=== PATIENT | male | born 1990 | race Caucasian/White ===

== ENCOUNTER 2019-10-25 20:09 | Inpatient (IN) | payer OTHER ==
--- NOTE | 2019-10-25 20:10 | ED ---
Overdose HPI - General Stated Complaint: Overdose Time Seen by Provider: 10/25/19 20:10 Source: RN notes reviewed, old records reviewed Mode of arrival: EMS Limitations: altered mental status, physical limitation - History of Present Illness Initial Comments: This is a 29 male in severe distress unable to provide history because of overdose, altered mental state, history obtained form EMS, heroun and meth abuse and found down of unknown downtime. Complaint: accidental overdose -: unknown Intent: unwilling to say How Overdose Was Discovered: other (found unresponsive) Context: Accidental Overdose: wanted to get high Treatments Prior to Arrival: none - Related Data Home Medications Medication Instructions Recorded Confirmed No Known Home Medications 10/25/19 10/25/19 Allergies Allergy/AdvReac Type Severity Reaction Status Date / Time Penicillins Allergy Unknown Verified 10/25/19 21:43 Review of Systems ROS Statement: Those systems with pertinent positive or pertinent negative responses have been documented in the HPI. ROS Other: All systems not noted in ROS Statement are negative. General Exam General appearance: alert, anxious, in distress Head exam: Present: atraumatic, normocephalic, normal inspection Eye exam: Present: normal appearance, PERRL, EOMI. Absent: scleral icterus, conjunctival injection, periorbital swelling ENT exam: Present: normal exam, mucous membranes moist Neck exam: Present: normal inspection. Absent: tenderness, meningismus, lymphadenopathy Respiratory exam: Present: normal lung sounds bilaterally, rhonchi, accessory muscle use, decreased breath sounds, prolonged expiratory. Absent: respiratory distress, wheezes, rales, stridor Cardiovascular Exam: Present: tachycardia, irregular rhythm, normal heart sounds. Absent: systolic murmur, diastolic murmur, rubs, gallop, clicks GI/Abdominal exam: Present: soft, normal bowel sounds. Absent: distended, tenderness, guarding, rebound, rigid Extremities exam: Present: normal inspection, full ROM, normal capillary refill. Absent: tenderness, pedal edema, joint swelling, calf tenderness Back exam: Present: normal inspection Neurological exam: Present: alert, oriented X3, CN II-XII intact Psychiatric exam: Present: normal affect, normal mood Skin exam: Present: warm, dry, intact, normal color. Absent: rash Course Vital Signs 10/25/19 10/25/19 10/25/19 20:10 20:22 20:28 Temperature 94.4 F L Pulse Rate 170 H 181 H 181 H Pulse Rate [ Bilateral] Respiratory 25 H 25 H Rate Blood Pressure 83/64 68/46 93/60 O2 Sat by Pulse 89 L 92 L Oximetry 10/25/19 10/25/19 10/25/19 20:32 20:37 20:39 Temperature Pulse Rate 161 H 122 H 129 H Pulse Rate [ Bilateral] Respiratory 20 Rate Blood Pressure 101/50 77/51 O2 Sat by Pulse 91 L Oximetry 10/25/19 10/25/19 10/25/19 20:40 20:43 20:48 Temperature Pulse Rate 137 H 133 H 152 H Pulse Rate [ Bilateral] Respiratory 16 15 Rate Blood Pressure 75/51 81/52 81/54 O2 Sat by Pulse 91 L 95 Oximetry 10/25/19 10/25/19 10/25/19 20:52 20:56 20:58 Temperature 97.6 F Pulse Rate 146 H 158 H Pulse Rate [ Bilateral] Respiratory 18 Rate Blood Pressure 91/53 81/44 O2 Sat by Pulse 94 L Oximetry 10/25/19 10/25/19 10/25/19 21:02 21:11 21:17 Temperature Pulse Rate 110 H 123 H Pulse Rate [ Bilateral] Respiratory Rate Blood Pressure 69/48 77/49 82/49 O2 Sat by Pulse Oximetry 10/25/19 10/25/19 10/25/19 21:27 21:30 21:40 Temperature Pulse Rate 108 H 116 H Pulse Rate [ 110 H Bilateral] Respiratory 18 Rate Blood Pressure 84/54 100/58 O2 Sat by Pulse 94 L 95 Oximetry 10/25/19 10/25/19 10/25/19 22:00 22:21 22:38 Temperature Pulse Rate 118 H 117 H 112 H Pulse Rate [ Bilateral] Respiratory 28 H 26 H 26 H Rate Blood Pressure 91/67 102/63 100/59 O2 Sat by Pulse 93 L 96 98 Oximetry 10/25/19 10/25/19 10/25/19 23:03 23:09 23:21 Temperature Pulse Rate 101 H 96 Pulse Rate [ Bilateral] Respiratory 24 24 Rate Blood Pressure 93/62 110/68 O2 Sat by Pulse 97 98 97 Oximetry - Reevaluation(s) Reevaluation #1: medical record is reviewed patient symptoms improved but still marginal informed patient of results and family, questions answered patient still w marginal hemodynamics although improving Medical Decision Making - Medical Decision Making 89 male with accidental overdose not cardiopulmonary edema and also wanted HO fibrillation with RVR now with rate control. Patient will be admitted for telemetry cardiology, hemodynamic monitoring - Lab Data Result diagrams: 10/26/19 06:34 10/26/19 06:34 Lab Results 10/25/19 10/25/19 10/25/19 Range/Units 20:34 20:34 20:34 WBC 5.0 (3.8-10.6) k/uL RBC 4.76 (4.30-5.90) m/uL Hgb 13.8 (13.0-17.5) gm/dL Hct 43.4 (39.0-53.0) % MCV 91.1 (80.0-100.0) fL MCH 28.9 (25.0-35.0) pg MCHC 31.8 (31.0-37.0) g/dL RDW 13.9 (11.5-15.5) % Plt Count 258 (150-450) k/uL Neutrophils % 55 % Lymphocytes % 40 % Monocytes % 2 % Eosinophils % 1 % Basophils % 0 % Neutrophils # 2.8 (1.3-7.7) k/uL Lymphocytes # 2.0 (1.0-4.8) k/uL Monocytes # 0.1 (0-1.0) k/uL Eosinophils # 0.0 (0-0.7) k/uL Basophils # 0.0 (0-0.2) k/uL PT 13.9 H (9.0-12.0) sec INR 1.4 H (<1.2) APTT 25.7 (22.0-30.0) sec Sodium 139 (137-145) mmol/L Potassium 2.7 L* (3.5-5.1) mmol/L Chloride 112 H (98-107) mmol/L Carbon Dioxide 19 L (22-30) mmol/L Anion Gap 8 mmol/L BUN 11 (9-20) mg/dL Creatinine 0.85 (0.66-1.25) mg/dL Est GFR (CKD-EPI)AfAm >90 (>60 ml/min/1.73 sqM) Est GFR (CKD-EPI)NonAf >90 (>60 ml/min/1.73 sqM) Glucose 224 H (74-99) mg/dL Calcium 6.3 L* (8.4-10.2) mg/dL Phosphorus 5.5 H (2.5-4.5) mg/dL Magnesium 1.7 (1.6-2.3) mg/dL Total Bilirubin 0.8 (0.2-1.3) mg/dL AST 21 (17-59) U/L ALT 18 (4-49) U/L Alkaline Phosphatase 35 L (38-126) U/L Creatine Kinase 68 (55-170) U/L CK-MB (CK-2) (0.0-2.4) ng/mL Troponin I (0.000-0.034) ng/mL NT-Pro-B Natriuret Pep pg/mL Total Protein 4.6 L (6.3-8.2) g/dL Albumin 2.5 L (3.5-5.0) g/dL TSH 2.090 (0.465-4.680) mIU/L 10/25/19 10/25/19 Range/Units 20:34 20:34 WBC (3.8-10.6) k/uL RBC (4.30-5.90) m/uL Hgb (13.0-17.5) gm/dL Hct (39.0-53.0) % MCV (80.0-100.0) fL MCH (25.0-35.0) pg MCHC (31.0-37.0) g/dL RDW (11.5-15.5) % Plt Count (150-450) k/uL Neutrophils % % Lymphocytes % % Monocytes % % Eosinophils % % Basophils % % Neutrophils # (1.3-7.7) k/uL Lymphocytes # (1.0-4.8) k/uL Monocytes # (0-1.0) k/uL Eosinophils # (0-0.7) k/uL Basophils # (0-0.2) k/uL PT (9.0-12.0) sec INR (<1.2) APTT (22.0-30.0) sec Sodium (137-145) mmol/L Potassium (3.5-5.1) mmol/L Chloride (98-107) mmol/L Carbon Dioxide (22-30) mmol/L Anion Gap mmol/L BUN (9-20) mg/dL Creatinine (0.66-1.25) mg/dL Est GFR (CKD-EPI)AfAm (>60 ml/min/1.73 sqM) Est GFR (CKD-EPI)NonAf (>60 ml/min/1.73 sqM) Glucose (74-99) mg/dL Calcium (8.4-10.2) mg/dL Phosphorus (2.5-4.5) mg/dL Magnesium (1.6-2.3) mg/dL Total Bilirubin (0.2-1.3) mg/dL AST (17-59) U/L ALT (4-49) U/L Alkaline Phosphatase (38-126) U/L Creatine Kinase (55-170) U/L CK-MB (CK-2) 0.4 (0.0-2.4) ng/mL Troponin I <0.012 (0.000-0.034) ng/mL NT-Pro-B Natriuret Pep 105 pg/mL Total Protein (6.3-8.2) g/dL Albumin (3.5-5.0) g/dL TSH (0.465-4.680) mIU/L - EKG Data -: EKG Interpreted by Me (EKG is A. fib 171 QRS 74 QTc 458) When compared to previous EKG there are: changes noted (Repeat EKG shows sinus rhythm of 110 by mouth 128 QRS 90 QTC 492) - Radiology Data Radiology results: report reviewed (Chest x-ray shows noncardiogenic pulmonary edema), image reviewed Critical Care Time Critical Care Time: Yes Total Critical Care Time: 31 Disposition Clinical Impression: Accidental drug overdose, Poisoning by opiates and related narcotics, other, Atrial fibrillation with RVR, Weakness, Severe protein-calorie malnutrition, Hypocalcemia, Hypokalemia Disposition: ADMITTED IP TO THIS HOSP Condition: Serious Is patient prescribed a controlled substance at d/c from ED?: No
[2019-10-25] MEDS ORDERED: SODIUM CHLORIDE 0.9% 500 ML 500 ML IV STA (20:18)
[2019-10-25] MEDS ORDERED: SODIUM CHLORIDE 0.9% 1,000 ML IV STA ×2 (20:18)
[2019-10-25] MEDS ORDERED: DILTIAZEM DRIP BOLUS FROM BAG 1 MG SOLN IV ONE (20:20)
[2019-10-25] MEDS ORDERED: ONDANSETRON 4 MG/2 ML VIAL IVP STA (20:20)
[2019-10-25] MEDS ORDERED: IPRATROPIUM-ALBUTEROL 3 ML NEB INHALATION STA (20:24)
[2019-10-25] MEDS: LORazepam 2 MG/ML INJ IV STA ×2 (20:26→21:03)
[2019-10-25 20:44] LABS: Basophils % (A) 0 %; Eosinophils % (A) 1 %; HCT 43.4 % (39.0-53.0); HGB 13.8 gm/dL (13.0-17.5); Lymphocytes % (A) 40 %; MCH 28.9 pg (25.0-35.0); MCHC 31.8 g/dL (31.0-37.0); MCV 91.1 fL (80.0-100.0); Mean Platelet Volume 7.8; Monocytes # (A) 0.1 k/uL (0-1.0); Monocytes % (A) 2 %; Neutrophils # (A) 2.8 k/uL (1.3-7.7); Neutrophils % (A) 55 %; Platelet Count 258 k/uL (150-450); RBC 4.76 m/uL (4.30-5.90); RDW 13.9 % (11.5-15.5)
[2019-10-25 20:54] LABS: ALT 18 U/L (4-49); AST 21 U/L (17-59); African American GFR (CKD) >90 (>60 ml/min/1.73 sqM); Albumin 2.5 g/dL (3.5-5.0); Alkaline Phosphatase 35 U/L (38-126); Anion Gap 8 mmol/L; Blood Urea Nitrogen 11 mg/dL (9-20); Carbon Dioxide 19 mmol/L (22-30); Chloride 112 mmol/L (98-107); Creatine Kinase 68 U/L (55-170); Glucose 224 mg/dL (74-99); Magnesium 1.7 mg/dL (1.6-2.3); Non-African American GFR(CKD) >90 (>60 ml/min/1.73 sqM); Phosphorus 5.5 mg/dL (2.5-4.5); Sodium 139 mmol/L (137-145); Total Bilirubin 0.8 mg/dL (0.2-1.3); Total Protein 4.6 g/dL (6.3-8.2)
[2019-10-25] MEDS ORDERED: DILTIAZEM 125 MG in SODIUM CHLORIDE 0.9% 100 ML IV SCH (21:00)
[2019-10-25 21:05] LABS: Calcium 6.3 mg/dL (8.4-10.2); Potassium 2.7 mmol/L (3.5-5.1)
--- NOTE | 2019-10-25 21:05 | XR ---
EXAMINATION TYPE: XR chest 1V portable DATE OF EXAM: 10/25/2019 COMPARISON: NONE HISTORY: Short of breath TECHNIQUE: Single view FINDINGS: There is pulmonary interstitial edema. There is some coalescent density around the right pu lmonary hilum. Heart size is normal. There are chest leads. IMPRESSION: There is some pulmonary edema. Normal heart size. No pneumothorax. Right lower lobe pneum onia is probably present.
[2019-10-25 21:06] LABS: INR 1.4 (<1.2); Partial Thromboplastin Time 25.7 sec (22.0-30.0); Prothrombin Time 13.9 sec (9.0-12.0)
[2019-10-25 21:11] LABS: Creatine Kinase MB 0.4 ng/mL (0.0-2.4); Troponin I <0.012 ng/mL (0.000-0.034)
[2019-10-25] MEDS ORDERED: SODIUM CHLORIDE 0.9% 1,500 ML IV ONE (21:13)
[2019-10-25] MEDS ORDERED: POTASSIUM CHLORIDE ER 20 MEQ TAB.ER PO STA (21:13)
[2019-10-25] MEDS ORDERED: IPRATROPIUM-ALBUTEROL 3 ML NEB INHALATION PRN (21:14)
[2019-10-25] MEDS ORDERED: NITROGLYCERIN SL TABS 0.4 MG TAB SUBLINGUAL PRN (21:14)
[2019-10-25] MEDS ORDERED: methylPREDNISolone SOD SUCCI 125 MG/2 ML VIAL IV STA (21:14)
[2019-10-25] MEDS ORDERED: NALOXONE 0.4 MG/ML 1 ML VIAL IV PRN (21:14)
[2019-10-25] MEDS ORDERED: LORazepam 2 MG/ML INJ IV PRN (21:14)
[2019-10-25] MEDS ORDERED: LORazepam 2 MG/ML INJ IV STA (21:20)
[2019-10-25] MEDS ORDERED: MORPHINE SULFATE 4 MG/ML SYRINGE IVP STA ×2 (22:08→22:12)
[2019-10-25] MEDS: POTASSIUM CHLORIDE 20 MEQ in WATER FOR INJECTION 1 100ML.BAG IVPB SCH (22:31)
[2019-10-26] MEDS: POTASSIUM CHLORIDE 20 MEQ in WATER FOR INJECTION 1 100ML.BAG IVPB SCH ×3 (00:13→04:43)
[2019-10-26 02:27] LABS: Amphetamine Screen,Urine Detected (NotDetected); Barbiturate Screen,Urine Not Detected (NotDetected); Benzodiazepines Screen,Urine Detected (NotDetected); Cocaine Screen,Urine Not Detected (NotDetected); Methadone Screen, Urine Not Detected (NotDetected); Opiate Screen,Urine Detected (NotDetected); Oxycodone Screen, Urine Not Detected (NotDetected); Phencyclidine Screen,Urine Not Detected (NotDetected); Tricyclic Antidepressant,Urine Not Detected (NotDetected); Urn Cannabinoid Scrn Detected (NotDetected)
[2019-10-26 03:57] VITALS: RESP 20
[2019-10-26 06:59] LABS: HCT 44.3 % (39.0-53.0); HGB 14.2 gm/dL (13.0-17.5); MCH 28.6 pg (25.0-35.0); MCHC 32.1 g/dL (31.0-37.0); MCV 89.3 fL (80.0-100.0); Mean Platelet Volume 7.4; Platelet Count 247 k/uL (150-450); RBC 4.96 m/uL (4.30-5.90); RDW 13.9 % (11.5-15.5); WBC 4.2 k/uL (3.8-10.6)
[2019-10-26 07:06] LABS: ALT 27 U/L (4-49); AST 31 U/L (17-59); African American GFR (CKD) >90 (>60 ml/min/1.73 sqM); Albumin 3.2 g/dL (3.5-5.0); Alkaline Phosphatase 34 U/L (38-126); Anion Gap 4 mmol/L; Blood Urea Nitrogen 13 mg/dL (9-20); Calcium 8.3 mg/dL (8.4-10.2); Carbon Dioxide 23 mmol/L (22-30); Chloride 111 mmol/L (98-107); Cholesterol 128 mg/dL (<200); Glucose 147 mg/dL (74-99); HDL Cholesterol 45 mg/dL (40-60); LDL Cholesterol,Calculated 77 mg/dL (0-99); Non-African American GFR(CKD) >90 (>60 ml/min/1.73 sqM); Potassium 5.4 mmol/L (3.5-5.1); Sodium 138 mmol/L (137-145); Total Bilirubin 1.4 mg/dL (0.2-1.3); Total Protein 5.8 g/dL (6.3-8.2); Triglycerides 30 mg/dL (<150)
[2019-10-26] MEDS ORDERED: PANTOPRAZOLE 40 MG/10 ML VIAL IV SCH (09:00)
[2019-10-26] MEDS ORDERED: ASPIRIN 325 MG TAB PO SCH (09:00)
[2019-10-26 10:05] LABS: Band Neutrophils % 33 %; Lymphocytes # (M) 0.25 k/uL (1.0-4.8); Monocytes # (M) 0.42 k/uL (0-1.0); Neutrophils % (M) 52 %; Nucleated Red Blood Cells 0 /100 WBC (0-0); Total Cells Counted 200
[2019-10-26 10:06] LABS: Anisocytosis (M) Present
[2019-10-26] MEDS ORDERED: LACTATED RINGERS 1,000 ML IV SCH (11:45)
[2019-10-26] MEDS ORDERED: NICOTINE 21MG/24HR PATCH TRANSDERM SCH (11:45)
--- NOTE | 2019-10-26 13:09 | P.CRDCN ---
History of Present Illness Consult date: 10/26/19 Chief complaint: Change in mental status History of present illness: This is a 29-year-old gentleman who was admitted to the hospital with a change in mental status. The patient somewhat is a poor historian. The patient was with friends around the water when he developed change in mental status. He was brought to the emergency department and he was found to be positive for multiple substances. He admitted that he was using heroine. We consulted to see the patient because of cardiac arrhythmia. When he presented to the hospital he was in atrial fibrillation with RVR and that was new to have a subsequently was converted to normal sinus mechanism. In terms of symptoms he is completely asymptomatic and denies any symptoms of chest pain or chest discomfort, shortness of breath, dizziness, heart racing. The urine drug screen came in positive for opiates as well as marijuana. The patient stated that he was using heroine. He is also a smoker. He has been maintaining normal sinus mechanism. 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 He has been maintaining normal sinus mechanism. The blood pressure has been on the low side. I am going to start the patient on small dose of metoprolol at 12.5 mg by mouth twice a day. I will obtain an echocardiogram was Doppler. Continue following up with him. Past Medical History Past Medical History: No Reported History History of Any Multi-Drug Resistant Organisms: Unobtainable Past Surgical History: No Surgical Hx Reported Past Anesthesia/Blood Transfusion Reactions: No Reported Reaction Past Psychological History: No Psychological Hx Reported Smoking Status: Current every day smoker Past Alcohol Use History: None Reported Past Drug Use History: Heroin, Methamphetamine, Opiates Medications and Allergies Home Medications Medication Instructions Recorded Confirmed Type No Known Home Medications 10/25/19 10/25/19 History Allergies Allergy/AdvReac Type Severity Reaction Status Date / Time Penicillins Allergy Unknown Verified 10/25/19 21:43 Physical Exam Vitals: Vital Signs Temp Pulse Pulse Resp BP BP Pulse Ox 10/26/19 03:54 98.0 F 100 20 88/51 97 10/26/19 02:08 97 10/26/19 01:03 98.4 F 111 H 28 H 115/55 96 10/26/19 00:52 98.4 F 111 H 28 H 115/55 96 10/25/19 23:21 96 24 110/68 97 10/25/19 23:09 101 H 24 93/62 98 10/25/19 23:03 97 10/25/19 22:38 112 H 26 H 100/59 98 10/25/19 22:21 117 H 26 H 102/63 96 10/25/19 22:00 118 H 28 H 91/67 93 L 10/25/19 21:40 116 H 100/58 95 10/25/19 21:30 110 H 10/25/19 21:27 108 H 18 84/54 94 L 10/25/19 21:17 123 H 82/49 10/25/19 21:11 77/49 10/25/19 21:02 110 H 69/48 10/25/19 20:58 158 H 81/44 10/25/19 20:56 97.6 F 10/25/19 20:52 146 H 18 91/53 94 L 10/25/19 20:48 152 H 15 81/54 95 10/25/19 20:43 133 H 81/52 10/25/19 20:40 137 H 16 75/51 91 L 10/25/19 20:39 129 H 10/25/19 20:37 122 H 20 77/51 91 L 10/25/19 20:32 161 H 101/50 10/25/19 20:28 94.4 F L 181 H 25 H 93/60 92 L 10/25/19 20:22 181 H 68/46 10/25/19 20:10 170 H 25 H 83/64 89 L Intake and Output 10/25/19 10/26/19 10/26/19 22:59 06:59 14:59 Intake Total 100 910 Output Total 400 Balance 100 510 Intake: Intake, IV Titration 100 790 Amount Potassium Chloride 20 meq 100 200 In Water For Injection 1 100ml.bag @ 50 mls/hr IVPB Q2HR AGUSTINA Rx#: [id number] Sodium Chloride 0.9% 1, 590 000 ml @ 130 mls/hr IV . Q7H42M STA Rx#:[id number] Oral 120 Output: Urine 400 Other: Weight 78.471 kg 73.5 kg - Constitutional General appearance: no acute distress - Respiratory Respiratory: bilateral: CTA - Cardiovascular Rhythm: regular Heart sounds: normal: S1, S2 Results 10/26/19 06:34 10/26/19 06:34 Cardiac Enzymes 10/25/19 10/25/19 10/25/19 Range/Units 20:34 20:34 23:11 AST 21 (17-59) U/L CK-MB (CK-2) 0.4 (0.0-2.4) ng/mL Troponin I <0.012 <0.012 (0.000-0.034) ng/mL 10/26/19 10/26/19 Range/Units 02:25 06:34 AST 31 (17-59) U/L CK-MB (CK-2) (0.0-2.4) ng/mL Troponin I 0.012 (0.000-0.034) ng/mL Coagulation 10/25/19 Range/Units 20:34 PT 13.9 H (9.0-12.0) sec APTT 25.7 (22.0-30.0) sec Lipids 10/26/19 Range/Units 06:34 Triglycerides 30 (<150) mg/dL Cholesterol 128 (<200) mg/dL HDL Cholesterol 45 (40-60) mg/dL CBC 10/25/19 10/26/19 Range/Units 20:34 06:34 WBC 5.0 4.2 (3.8-10.6) k/uL RBC 4.76 4.96 (4.30-5.90) m/uL Hgb 13.8 14.2 (13.0-17.5) gm/dL Hct 43.4 44.3 (39.0-53.0) % Plt Count 258 247 (150-450) k/uL Comprehensive Metabolic Panel 10/25/19 10/26/19 Range/Units 20:34 06:34 Sodium 139 138 (137-145) mmol/L Potassium 2.7 L* 5.4 H (3.5-5.1) mmol/L Chloride 112 H 111 H (98-107) mmol/L Carbon Dioxide 19 L 23 (22-30) mmol/L BUN 11 13 (9-20) mg/dL Creatinine 0.85 0.80 (0.66-1.25) mg/dL Glucose 224 H 147 H (74-99) mg/dL Calcium 6.3 L* 8.3 L (8.4-10.2) mg/dL AST 21 31 (17-59) U/L ALT 18 27 (4-49) U/L Alkaline Phosphatase 35 L 34 L (38-126) U/L Total Protein 4.6 L 5.8 L (6.3-8.2) g/dL Albumin 2.5 L 3.2 L (3.5-5.0) g/dL Current Medications Generic Name Dose Route Start Last Admin Trade Name Freq PRN Reason Stop Dose Admin Albuterol/Ipratropium 3 ml 10/25/19 21:14 Duoneb 0.5 Mg-3 Mg/3 Ml Soln INHALATION RT-Q4H PRN Shortness Of Breath Or Wheezing Aspirin 81 mg 10/27/19 09:00 Aspirin PO DAILY AGUSTINA Metoprolol Tartrate 12.5 mg 10/26/19 21:00 Lopressor PO BID AGUSTINA Naloxone HCl 0.2 mg 10/25/19 21:14 Narcan IV Q2M PRN Opioid Reversal Nicotine 1 patch 10/26/19 11:45 10/26/19 11:58 Habitrol 21mg/24hr Patch TRANSDERM 1 patch DAILY AGUSTINA Administration Nitroglycerin 0.4 mg 10/25/19 21:14 Nitrostat SUBLINGUAL Q5M PRN Chest Pain Pantoprazole Sodium 40 mg 10/26/19 09:00 10/26/19 09:50 Protonix IV 40 mg DAILY AGUSTINA Administration Intake and Output 10/25/19 10/26/19 10/26/19 22:59 06:59 14:59 Intake Total 100 910 Output Total 400 Balance 100 510 Intake: Intake, IV Titration 100 790 Amount Potassium Chloride 20 meq 100 200 In Water For Injection 1 100ml.bag @ 50 mls/hr IVPB Q2HR AGUSTINA Rx#: [id number] Sodium Chloride 0.9% 1, 590 000 ml @ 130 mls/hr IV . Q7H42M STA Rx#:[id number] Oral 120 Output: Urine 400 Other: Weight 78.471 kg 73.5 kg 10/26/19 06:34 10/26/19 06:34 Assessment and Plan Assessment: Assessment #1 drug abuse #2 paroxysmal atrial fibrillation Plan #1 continue with current medical regimen #2 start the patient on a small dose of metoprolol #3 obtain an echocardiogram was Doppler #4 follow-up with the patient
--- NOTE | 2019-10-26 15:02 | P.HPIM ---
History of Present Illness 29-year-old pleasant male came in for heroin overdose and the patient is still not in any and patient is also found to be in atrial fibrillation with rapid ventricular rate patient is presently sinus rhythm and the rate controlled pa tient approximately A. fib. Echocardiac exam is being obtained patient is alert oriented times it this time and patient is willing to quit drugs. Patient denied using any IV drugs. Patient the urine drug screen is positive for amphetamines benzodiazepines hyaline and opiates. Patient was started on low- dose metoprolol echocardiogram is being obtained andshe was started on aspirin. Patient denied any fever chills patient had nausea vomiting dysuria diarrhea. Patient was never tested for hepatitis C Review of Systems REVIEW OF SYSTEMS: CONSTITUTIONAL: No fever, no malaise, no fatigue. HEENT: No recent visual problems or hearing problems. Denied any sore throat. CARDIOVASCULAR: No chest pain, orthopnea, PND, no palpitations, no syncope. PULMONARY: No shortness of breath, no cough, no hemoptysis. GASTROINTESTINAL: No diarrhea, no nausea, no vomiting, no abdominal pain. NEUROLOGICAL: No headaches, no weakness, no numbness. HEMATOLOGICAL: Denies any bleeding or petechiae. GENITOURINARY: Denies any burning micturition, frequency, or urgency. MUSCULOSKELETAL/RHEUMATOLOGICAL: Denies any joint pain, swelling, or any muscle pain. ENDOCRINE: Denies any polyuria or polydipsia. The rest of the 14-point review of systems is negative. Past Medical History Past Medical History: No Reported History History of Any Multi-Drug Resistant Organisms: Unobtainable Past Surgical History: No Surgical Hx Reported Past Anesthesia/Blood Transfusion Reactions: No Reported Reaction Past Psychological History: No Psychological Hx Reported Smoking Status: Current every day smoker Past Alcohol Use History: None Reported Past Drug Use History: Heroin, Methamphetamine, Opiates Medications and Allergies Home Medications Medication Instructions Recorded Confirmed Type No Known Home Medications 10/25/19 10/25/19 History Allergies Allergy/AdvReac Type Severity Reaction Status Date / Time Penicillins Allergy Unknown Verified 10/25/19 21:43 Physical Exam Vitals: Vital Signs Temp Pulse Pulse Resp BP BP Pulse Ox 10/26/19 03:54 98.0 F 100 20 88/51 97 10/26/19 02:08 97 10/26/19 01:03 98.4 F 111 H 28 H 115/55 96 10/26/19 00:52 98.4 F 111 H 28 H 115/55 96 10/25/19 23:21 96 24 110/68 97 10/25/19 23:09 101 H 24 93/62 98 10/25/19 23:03 97 10/25/19 22:38 112 H 26 H 100/59 98 10/25/19 22:21 117 H 26 H 102/63 96 10/25/19 22:00 118 H 28 H 91/67 93 L 10/25/19 21:40 116 H 100/58 95 10/25/19 21:30 110 H 10/25/19 21:27 108 H 18 84/54 94 L 10/25/19 21:17 123 H 82/49 10/25/19 21:11 77/49 10/25/19 21:02 110 H 69/48 10/25/19 20:58 158 H 81/44 10/25/19 20:56 97.6 F 10/25/19 20:52 146 H 18 91/53 94 L 10/25/19 20:48 152 H 15 81/54 95 10/25/19 20:43 133 H 81/52 10/25/19 20:40 137 H 16 75/51 91 L 10/25/19 20:39 129 H 10/25/19 20:37 122 H 20 77/51 91 L 10/25/19 20:32 161 H 101/50 10/25/19 20:28 94.4 F L 181 H 25 H 93/60 92 L 10/25/19 20:22 181 H 68/46 10/25/19 20:10 170 H 25 H 83/64 89 L Intake and Output 10/25/19 10/26/19 10/26/19 22:59 06:59 14:59 Intake Total 100 910 236 Output Total 400 Balance 100 510 236 Intake: Intake, IV Titration 100 790 Amount Potassium Chloride 20 meq 100 200 In Water For Injection 1 100ml.bag @ 50 mls/hr IVPB Q2HR AGUSTINA Rx#: [id number] Sodium Chloride 0.9% 1, 590 000 ml @ 130 mls/hr IV . Q7H42M STA Rx#:[id number] Oral 120 236 Output: Urine 400 Other: # Voids 2 Weight 78.471 kg 73.5 kg PHYSICAL EXAMINATION: GENERAL: The patient is alert and oriented x3, not in any acute distress. Well developed, well nourished. HEENT: Pupils are round and equally reacting to light. EOMI. No scleral icterus. No conjunctival pallor. Normocephalic, atraumatic. No pharyngeal erythema. No thyromegaly. CARDIOVASCULAR: S1 and S2 present. No murmurs, rubs, or gallops. PULMONARY: Chest is clear to auscultation, no wheezing or crackles. ABDOMEN: Soft, nontender, nondistended, normoactive bowel sounds. No palpable organomegaly. MUSCULOSKELETAL: No joint swelling or deformity. EXTREMITIES: No cyanosis, clubbing, or pedal edema. NEUROLOGICAL: Gross neurological examination did not reveal any focal deficits. SKIN: No rashes. Results CBC & Chem 7: 10/26/19 06:34 10/26/19 06:34 Labs: Abnormal Lab Results - Last 24 Hours (Table) 10/25/19 10/25/19 10/26/19 Range/Units 20:34 20:34 02:00 Lymphocytes # (Manual) (1.0-4.8) k/uL PT 13.9 H (9.0-12.0) sec INR 1.4 H (<1.2) Potassium 2.7 L* (3.5-5.1) mmol/L Chloride 112 H (98-107) mmol/L Carbon Dioxide 19 L (22-30) mmol/L Glucose 224 H (74-99) mg/dL Calcium 6.3 L* (8.4-10.2) mg/dL Phosphorus 5.5 H (2.5-4.5) mg/dL Total Bilirubin (0.2-1.3) mg/dL Alkaline Phosphatase 35 L (38-126) U/L Total Protein 4.6 L (6.3-8.2) g/dL Albumin 2.5 L (3.5-5.0) g/dL Urine Opiates Screen Detected H (NotDetected) Ur Amphetamines Screen Detected H (NotDetected) U Methamphetamines Scrn Detected H (NotDetected) U Benzodiazepines Scrn Detected H (NotDetected) U Marijuana (THC) Screen Detected H (NotDetected) 10/26/19 10/26/19 Range/Units 06:34 06:34 Lymphocytes # (Manual) 0.25 L (1.0-4.8) k/uL PT (9.0-12.0) sec INR (<1.2) Potassium 5.4 H (3.5-5.1) mmol/L Chloride 111 H (98-107) mmol/L Carbon Dioxide (22-30) mmol/L Glucose 147 H (74-99) mg/dL Calcium 8.3 L (8.4-10.2) mg/dL Phosphorus (2.5-4.5) mg/dL Total Bilirubin 1.4 H (0.2-1.3) mg/dL Alkaline Phosphatase 34 L (38-126) U/L Total Protein 5.8 L (6.3-8.2) g/dL Albumin 3.2 L (3.5-5.0) g/dL Urine Opiates Screen (NotDetected) Ur Amphetamines Screen (NotDetected) U Methamphetamines Scrn (NotDetected) U Benzodiazepines Scrn (NotDetected) U Marijuana (THC) Screen (NotDetected) Thrombosis Risk Factor Assmnt - Choose All That Apply Any of the Below Risk Factors Present?: No Other Risk Factors: No Other congenital or acquired thrombophilia - If yes, enter type in comment: No Thrombosis Risk Factor Assessment Level: Very Low Risk Assessment and Plan Plan: - drug overdose: Patient is presently alert and oriented will be tired and fatiguedpatient's IV fluids were discontinued because of mild hyperchloremia and also possibility of pulmonary edema. -new onset atrial fibrillation. Patient has proximal A. fib on admission patient had rapid ventricular rate patient is presently rate rate controlled in sinus rhythm patient was started on low-dose of beta jeff and aspirin.was no evidence of heart failure clinically chest x-ray suspicious for pulmonary edema. We'll obtain echocardiogram -rule out hepatitis C patient does have drug abuse but denied any evidence of the diffuse. -Nicotine abuse: Counseling was provided -DVT prophylaxis early ambulation
[2019-10-26 18:07] VITALS: BP 117/69; PULSE 101; TEMP 98.2
--- NOTE | 2019-10-26 20:51 | ECHOF ---
Referral Reason:a.fib MEASUREMENTS -------- HEIGHT: 165.1 cm WEIGHT: 73.5 kg BP: IVSd: 0.9 cm (0.6 - 1.1) LVIDd: 4.5 cm (3.9 - 5.3) LVPWd: 0.9 cm (0.6 - 1.1) IVSs: 1.1 cm LVIDs: 3.4 cm LVPWs: 1.1 cm RVIDd: 3.3 cm (< 3.3) LAESV Index (A-L): 24.90 ml/m Ao Diam: 3.2 cm (2.0 - 3.7) AV Cusp: 1.9 cm (1.5 - 2.6) EPSS: 0.3 cm MV E Med[place]: 0.89 m/s MV DecT: 137 ms MV A [place]: 0.85 m/s MV E/A Ratio: 1.05 RAP: 5.00 mmHg RVSP: 31.43 mmHg MV EF SLOPE: 143.26 mm/s (70 - 150) MV EXCURSION: 22.78 mm (> 18.000) FINDINGS -------- Sinus rhythm. This was a technically good study. LV size, wall thickness and systolic function are normal, with an EF greater than 55%. The left mandy tricular size is normal. The right ventricle is normal in size. The left atrial size is normal. Normal LA size by volume 22+/-6 ml/m2. The right atrial size is normal. The aortic valve is trileaflet, and appears structurally normal. No aortic stenosis or regurgitation. Mild mitral regurgitation is present. Mild tricuspid regurgitation present. Right ventricular systolic pressure is normal at < 35 mmHg. There is no pulmonic regurgitation present. The aortic root size is normal. There is no pericardial effusion. CONCLUSIONS -------- 1. Sinus rhythm. 2. LV size, wall thickness and systolic function are normal, with an EF greater than 55%. 3. The left ventricular size is normal. 4. The right ventricle is normal in size. 5. The left atrial size is normal. 6. Normal LA size by volume 22+/-6 ml/m2. 7. The right atrial size is normal. 8. Mild mitral regurgitation is present. 9. Mild tricuspid regurgitation present. 10. Right ventricular systolic pressure is normal at < 35 mmHg. FIRE EXTING[employer]ER TESTER: Renetta Mattson RDCS
[2019-10-26] MEDS ORDERED: METOPROLOL TARTRATE 12.5 MG TAB PO SCH (21:00)
[2019-10-27] MEDS ORDERED: ASPIRIN 81 MG PO SCH (09:00)
--- NOTE | 2019-10-27 10:29 | P.DS ---
Providers Date of admission: 10/25/19 21:16 Attending physician: Truman Parker Consults: 10/25/19 21:15 Consult Physician Routine Consulting Provider: Tam Parada Consult Reason/Comments: newAfib Do you want consulting provider notified?: Yes Primary care physician: Stated None Hospital Course: Patient left AGAINST MEDICAL ADVICE Patient Condition at Discharge: Serious Plan - Discharge Summary Discharge Rx Participant: No New Discharge Prescriptions: No Action No Known Home Medications Discharge Medication List No Known Home Medications 10/25/19 [History] Follow up Appointment(s)/Referral(s): None,Stated [Primary Care Provider] - 1-2 days Discharge Disposition: Left Against Medical Advice
--- NOTE | 2019-10-30 11:41 | CDI ---
Documentation Clarification Form Date: 10/30/19 From: Lucretia Gardner Phone: If you have a question about this query, please contact Alize Chavez, [employer] at [phone] between 8am and 5pm. Admit Date: 10/25/19 Discharge Date: 10/26/19 Patient Name: LUBNA BREWSTER Visit Number: [id number] ATTENTION: The Clinical Documentation Specialists (CDI) and [facility] Coding Staff appreciate your assistance in clarifying documentation. Please respond to the clarification below the line at the bottom and electronically sign. The CDI & [facility] Coding staff will review the response and follow-up if needed. Please note: Queries are made part of the Legal Health Record. If you have any questions, please contact the author of this message via ITS. Dear Dr. Antonio Oliver, The diagnosis severe protein calorie malnutrition was documented in the ED Note, but is not noted in subsequent documentation. History/Risk Factors: Heroin OD, hypocalcemia, PAF, BMI-27.0, hypokalemia, stimulant abuse Clinical Indicators: Total Protein: 4.6/5.8, Albumin: 2.5/3.2; no dietary notes Treatment: Regular diet Please clarify if the severe protein malnutrition was: Present/active/treated this admission Severe protein calorie malnutrition was ruled out Other, please specify Clinically unable to determine No malnutrition MTDD
--- NOTE | 2019-10-30 11:58 | CDI ---
Documentation Clarification Form Date: 10/30/19 From: Lucretia Gardner Phone: If you have a question about this query, please contact Alize Chavez, [employer] at [phone] between 8am and 5pm. Admit Date: 10/25/19 Discharge Date: 10/26/19 Patient Name: LUBNA BREWSTER Visit Number: [id number] ATTENTION: The Clinical Documentation Specialists (CDI) and [facility] Coding Staff appreciate your assistance in clarifying documentation. Please respond to the clarification below the line at the bottom and electronically sign. The CDI & [facility] Coding staff will review the response and follow-up if needed. Please note: Queries are made part of the Legal Health Record. If you have any questions, please contact the author of this message via ITS. Dear Dr. Antonio Oliver, The patient presented with the following respiratory symptoms: rhonchi, accessory muscle use, decreased breath sounds, prolonged expiratory, tachycardia, irregular rhythm. History/Risk Factors: Heroin OD, hypocalcemia, PAF, BMI-27.0, hypokalemia, stimulant abuse Tobacco use: yes Home oxygen: No Clinical Indicators: R: 10/24-25, 25, 28, 26,26,28,28 Vital signs: T-94.4, P-170, BP-83/64, O2-89 Pulse oximetry: 89, 92, 91, 91, 94, 94, 93 Lung/Breathing assessment: Clear, dry cough ABG/CBG: none available Treatment: IV Solu-Medrol Breathing tx: Duoneb Pulse ox Q shift O2 2 lpm In your professional opinion, can you please clarify if these findings signify one of the following conditions? Acute Respiratory Failure, hypoxic Acute Respiratory Failure, hypercapnic Acute on Chronic Respiratory Failure, hypoxic Acute on Chronic Respiratory Failure, hypercapnic Chronic Respiratory Failure Acute Respiratory Distress Acute Respiratory Insufficiency Other Diagnosis, please specify Unable to determine Specificity: If known, further specify (if known): With hypercapnia? (pCO2 >50 and pH <7.35) With hypoxia? (pO2 <60 mm Hg or SpO2 <91% on room air) No respiratory failure MTDD
--- NOTE | 2019-10-30 12:15 | CDI ---
Documentation Clarification Form Date: 10/30/19 From: Lucretia Gardner Phone: If you have a question about this query, please contact Alize Chavez, [employer] at [phone] between 8am and 5pm. Admit Date: 10/25/19 Discharge Date: 10/27/19 Patient Name: JULI BRAVO Visit Number: [id number] ATTENTION: The Clinical Documentation Specialists (CDI) and [facility] Coding Staff appreciate your assistance in clarifying documentation. Please respond to the clarification below the line at the bottom and electronically sign. The CDI & [facility] Coding staff will review the response and follow-up if needed. Please note: Queries are made part of the Legal Health Record. If you have any questions, please contact the author of this message via ITS. Dear Dr. Chato Ingram, Conflicting documentation has been found in the medical record: Per discharge summary, documented hypomagesemia and hypokalemia. No magnesium lab results available in view chart. Potassium lab results are 4.0 (range is 3.5/5.1). History/Risk Factors: dislocation of left hip prosthesis, postop delirium, alcohol dependence w transient encephalopathy, HTN Treatment: Did not receive magnesium or potassium In your opinion, what is the most clinically appropriate diagnosis for this patient? Hypomagesemia and hypokalemia ruled out Hypomagesemia and hypokalemia confirmed Other explanation of clinical findings Unable to determine (no explanation for clinical findings) MTDD
== END 2019-10-26 18:09 | disposition left against medical advice (07) | DRG 918 ==
LOC: EC 20:09 → 3SCARD 21:16
PROVIDERS: ADMIT Hospitalist; ATTEND Hospitalist
DX: T40.1X1A Poisoning by heroin, accidental (unintentional), initial encounter (principal); E83.51 Hypocalcemia; F15.10 Other stimulant abuse, uncomplicated; I48.0 Paroxysmal atrial fibrillation; E87.6 Hypokalemia; E87.8 Other disorders of electrolyte and fluid balance, not elsewhere classified; F17.200 Nicotine dependence, unspecified, uncomplicated; Z71.6 Tobacco abuse counseling; Z71.51 Drug abuse counseling and surveillance of drug abuser; Z88.0 Allergy status to penicillin
CPT/HCPCS: 36415; 71045; 80053; 80061; 80306; 82550; 82553; 83735; 83880; 84100; 84443; 84484; 85025; 85610; 85730; 93005; 93306; 94640; 94760; 96361; 96374; 96375; 99291